=== PATIENT | male | born 1970 | race Caucasian/White ===

== ENCOUNTER 2021-09-07 14:47 | Inpatient (IN) | payer MEDICAID ==
[~2021-09-07] VITALS: Ht 170.2 cm; Wt 69.4 kg
[2021-09-07] MEDS ORDERED: MORPHINE SULFATE 10 MG/ML CPJ IV ONE (16:00)
[2021-09-07] MEDS ORDERED: MORPHINE SULFATE 4 MG/ML CPJ (NOT FOR IM USE) IV ONE (20:15)
[2021-09-07] MEDS ORDERED: TETANUS, DIPHTHERIA, PERTUSSIS VAC/PF 0.5ML (>10YR OLD) IM ONE (21:00)
[2021-09-07] MEDS ORDERED: MAGNESIUM/ALUMINUM HYDROXIDE/SIMETHICONE 30ML UDC PO PRN (23:45)
[2021-09-07] MEDS ORDERED: ONDANSETRON HCL 4MG/2ML INJ IV PRN (23:45)
[2021-09-07] MEDS ORDERED: NALOXONE HCL 0.4MG/ML VIAL IV PRN (23:45)
[2021-09-07] MEDS ORDERED: MORPHINE SULFATE 2 MG/ML CPJ (NOT FOR IM USE) IV PRN (23:45)
[2021-09-07] MEDS ORDERED: ACETAMINOPHEN 325MG TABLET PO PRN ×2 (23:45)
[2021-09-07] MEDS ORDERED: HYDROCODONE/ACETAMINOPHEN 5/325MG TABLET PO PRN (23:45)
[2021-09-07] MEDS ORDERED: CLONIDINE 0.1MG TABLET PO PRN (23:45)
[2021-09-08 05:33] LABS: BASOPHILS % 0.2 % (0.0-2.0); EOSINOPHILS % 0.8 % (0.0-5.0); HEMOGLOBIN. 12.8 g/dL (14.0-18.0); LYMPHOCYTES % 15.5 % (20.0-50.0); MEAN CORPUSCULAR VOLUME 88.8 fL (80.0-94.0); MEAN PLATELET VOLUME 8.2 fl (7.4-10.4); MONOCYTES % 9.8 % (2.0-8.0); NEUTROPHILS % 73.7 % (40.0-76.0); PLATELET 203 x1000/uL (130-400); RED BLOOD CELL COUNT 4.29 mill/uL (4.7-6.1); RED CELL DISTRIBUTION WIDTH 13.7 % (11.6-14.6)
[2021-09-08 05:42] LABS: CHLORIDE 103 mEq/L (98-107)
[2021-09-08 05:43] LABS: PROTHROMBIN TIME 10.6 sec (9.6-11.0)
[2021-09-08 05:47] LABS: PHOSPHORUS 3.1 mg/dL (2.5-4.9)
[2021-09-08 11:06] VITALS: BP 122/72
[2021-09-08 12:00] VITALS: BP 122/72
[2021-09-08 16:00] VITALS: BP 114/74
[2021-09-08 20:00] VITALS: BP 114/74
[2021-09-08 20:35] VITALS: BP 114/74
== END 2021-09-08 22:25 | disposition home or self-care (01) | DRG 342 ==
LOC: ER 14:47 → EDBEDREQ 22:02 → MICUSO 22:32 → SUPCPDRO 23:34 → 7WST 09-08 10:36
PROVIDERS: ADMIT Internal Medicine; ATTEND Internal Medicine
PROC: 2W3BX1Z Immobilization of Left Upper Arm using Splint (ICD-10-PCS; principal; 2021-09-07)
DX: S42.302A Unspecified fracture of shaft of humerus, left arm, initial encounter for closed fracture (principal); S80.812A Abrasion, left lower leg, initial encounter; W11.XXXA Fall on and from ladder, initial encounter; Y93.89 Activity, other specified; Y92.89 Other specified places as the place of occurrence of the external cause; Y99.8 Other external cause status
CPT/HCPCS: 36415; 73060; 80048; 83735; 84100; 85025; 86850; 86900; 90715; 99285; J2270